=== PATIENT | male | born 1960 ===

== ENCOUNTER → 2018-12-10 15:45 | Outpatient (REF) | payer OTHER, SELFPAY ==
[2018-12-10 17:45] LABS: Alanine Aminotransferase 27 IU/L (21-72); Albumin 3.9 g/dL (3.5-5.0); Albumin Globulin Ratio 1.4 (1.0-2.8); Alkaline Phosphatase 54 U/L (38-126); Aspartate Aminotransferase 70 IU/L (17-59); BUN Creatinine Ratio 28.8 (6-22); Bilirubin Total 0.5 mg/dL (0.2-1.3); Blood Urea Nitrogen 23 mg/dL (9-20); Calcium 9.3 mg/dL (8.4-10.2); Carbon Dioxide 26 mmol/L (22-32); Chloride 106 mmol/L (98-107); Estimated Glomerular Filt Rate > 60.0 mL/min (>60); Globulin 2.7 g/dL (1.7-4.1); Glucose 101 mg/dL (70-100); HEMOLYSIS < 15 (0-50); Potassium 4.5 mmol/L (3.4-5.1); Sodium 139 mmol/L (137-145); Total Protein 6.6 g/dL (6.3-8.2)
== END ==
LOC: LAB 15:45
PROVIDERS: Visit Provider Specialist
DX: Z00.00 Encounter for general adult medical examination without abnormal findings (principal); N41.9 Inflammatory disease of prostate, unspecified; N32.0 Bladder-neck obstruction
CPT/HCPCS: 80053; 84153; 87070; 87075; 87205